=== PATIENT | female | born 1985 | race Caucasian/White ===

== ENCOUNTER 2021-02-27 15:22 | Emergency (ER) | payer MEDICAID ==
[~2021-02-27] VITALS: Ht 170.2 cm; Wt 61.4 kg
[2021-02-27] MEDS ORDERED: IV NORMAL SALINE 1,000ML 1,000 ML IV ONE (15:45)
--- NOTE | 2021-02-27 15:54 | PHYS DOC ---
General Adult EDM: Chief Complaint: CONGESTION HPI: HPI: Patient is a 35-year-old female who presents to the emergency department for 4- day history of nasal congestion and drainage, shortness of breath, nausea and chest wall tightness with deep inspiration. Patient reports that her children were sick with similar complaints and was told that they had a sinus infection. Patient denies any vomiting, chest pain, fevers. She is tachycardic in the emergency department with a heart rate of 1 33-1 35, 97% on room air. History of cervical cancer with a full hysterectomy. (CYNTHIA WHEELER APRN) Review of Systems: Review of Systems: Constitutional: negative unless reported in HPI Eyes: negative unless reported in HPI HENT: negative unless reported in HPI Respiratory: negative unless reported in HPI Cardiovascular: negative unless reported in HPI GI: negative unless reported in HPI : negative unless reported in HPI Musculoskeletal: negative unless reported in HPI Integument: negative unless reported in HPI Neurologic: negative unless reported in HPI Endocrine: negative unless reported in HPI Lymphatic: negative unless reported in HPI Psychiatric: negative unless reported in HPI (CYNTHIA WHEELER APRN) Current Medications: Current Meds: Current Medications Medications (Trade) Dose Ordered Sig/Aquilino Start Time Stop Time Status Last Admin Dose Admin Sodium Chloride 1,000 ml @ 1,000 mls/hr 1X ONCE 02/27/21 15:45 02/27/21 16:44 (CYNTHIA WHEELER APRN) Allergies: Allergies: Allergies Coded Allergies Type Severity Reaction Last Updated Verified No Known Drug Allergies 02/27/21 No (CYNTHIA WHEELER APRN) Physical Exam: PE: Constitutional: Well developed, well nourished, no acute distress, non-toxic appearance. [] HENT: Normocephalic, atraumatic, bilateral external ears normal, oropharynx moist, no oral exudates, nose normal. [] Eyes: PERRL, EOMI, conjunctiva normal, no discharge. [] Neck: Normal range of motion, no tenderness, supple, no stridor. [] Cardiovascular:Heart rate tachycardic rhythm, no murmur [] Lungs & Thorax: Bilateral breath sounds clear to auscultation [] Abdomen: Bowel sounds normal, soft, no tenderness, no masses, no pulsatile masses. [] Skin: Warm, dry, no erythema, no rash. [] Back: Normal range of motion Extremities: No tenderness, no cyanosis, no clubbing, ROM intact, no edema. [] Neurologic: Alert and oriented X 3, normal motor function, normal sensory function, no focal deficits noted. [] Psychologic: Affect normal, judgement normal, mood normal. [] (CYNTHIA WHEELER APRN) Current Patient Data: Labs: Laboratory Tests Test 02/27/21 15:50 02/27/21 16:52 White Blood Count 4.4 x10^3/uL Red Blood Count 4.86 x10^6/uL Hemoglobin 15.0 g/dL Hematocrit 44.4 % Mean Corpuscular Volume 91 fL Mean Corpuscular Hemoglobin 31 pg Mean Corpuscular Hemoglobin Concent 34 g/dL Red Cell Distribution Width 13.4 % Platelet Count 172 x10^3/uL Neutrophils (%) (Auto) 43 % Lymphocytes (%) (Auto) 43 % Monocytes (%) (Auto) 10 % Eosinophils (%) (Auto) 3 % Basophils (%) (Auto) 1 % Neutrophils # (Auto) 1.9 x10^3uL Lymphocytes # (Auto) 1.9 x10^3/uL Monocytes # (Auto) 0.5 x10^3/uL Eosinophils # (Auto) 0.1 x10^3/uL Basophils # (Auto) 0.0 x10^3/uL Urine Collection Type Clean catch Urine Color Yellow Urine Clarity Clear Urine pH 8.5 Urine Specific [place] 1.020 Urine Protein Neg Urine Glucose (UA) Neg mg/dL Urine Ketones (Stick) Neg mg/dL Urine Blood Neg Urine Nitrite Neg Urine Bilirubin Neg Urine Urobilinogen Dipstick 0.2 mg/dL Urine Leukocyte Esterase Neg Urine RBC 0 /HPF Urine WBC 0 /HPF Urine Squamous Epithelial Cells Few /LPF Urine Amorphous Sediment Present /HPF Urine Bacteria 0 /HPF Sodium Level 140 mmol/L Potassium Level 3.9 mmol/L Chloride Level 101 mmol/L Carbon Dioxide Level 29 mmol/L Anion Gap 10 Blood Urea Nitrogen 11 mg/dL Creatinine 0.8 mg/dL Estimated GFR (Cockcroft-Gault) 81.6 BUN/Creatinine Ratio 14 Glucose Level 107 mg/dL Calcium Level 8.4 mg/dL Total Bilirubin 0.2 mg/dL Aspartate Amino Transf (AST/SGOT) 16 U/L Alanine Aminotransferase (ALT/SGPT) 23 U/L Alkaline Phosphatase 44 U/L Troponin I High Sensitivity < 4 ng/L Total Protein 7.2 g/dL Albumin 4.0 g/dL Albumin/Globulin Ratio 1.3 Influenza Type A (Rapid) Negative Influenza Type B (Rapid) Negative SARS-CoV-2 Antigen (Rapid) Positive Current Medications Medications (Trade) Dose Ordered Sig/Aquilino Route PRN Reason Start Time Stop Time Status Last Admin Dose Admin Sodium Chloride 1,000 ml @ 1,000 mls/hr 1X ONCE IV 02/27/21 15:45 02/27/21 16:44 DC 02/27/21 16:52 Iohexol (Omnipaque 350 Mg/ml) 100 ml 1X ONCE IV 02/27/21 16:00 02/27/21 16:06 DC 02/27/21 16:07 (CYNTHIA WHEELER APRN) EKG: EKG: [] (CYNTHIA WHEELER APRN) Radiology/Procedures: Radiology/Procedures: []PROCEDURE: CT ANGIOGRAPHY CHEST CTA CHEST INDICATION: tachycardia, chest tightness, soa Comparison: None. TECHNIQUE: Following the uneventful administration of intravenous contrast, 83 cc Isovue-370, axial CT sections were obtained through the lungs and upper abdomen. Multiplanar reconstructions and MIP images were obtained. PQRS compliance statement: One or more of the following individualized dose reduction techniques were utilized for this examination: 1. Automated exposure control 2. Adjustment of the mA and/or kV according to patient size 3. Use of iterative reconstruction technique FINDINGS: Pulmonary arteries: No evidence of pulmonary thromboembolic disease Lungs and Airways: No pulmonary mass or consolidation. No abnormality of the central airways. Pleura: The pleural spaces are normal. Heart and Mediastinum: The visualized thyroid is normal in size and attenuation. No axillary or supraclavicular lymphadenopathy. No mediastinal, hilar or retrocrural lymphadenopathy. The heart and pericardium are within normal limits. The great vessels of the thorax are normal. Stable thymic tissue. Abdomen: Limited images through the upper abdomen show no abnormality of the visualized organs. Bones and Soft Tissues: The visualized bones and chest wall soft tissues are within normal limits. IMPRESSION: 1. No evidence of pulmonary thromboembolic disease. 2. No pulmonary mass or consolidation. Electronically signed by: Gordon Walton MD (02/27/2021 4:22 PM) [id number] DICTATED AND SIGNED BY: GORDON WALTON MD DATE: 02/27/21 1618 CC: CYNTHIA WHEELER APRN; DENISSE STONE MD ~MTH0 0 (CYNTHIA WHEELER APRN) Heart Score: C/O Chest Pain: No Risk Factors: Risk Factors: DM, Current or recent (<one month) smoker, HTN, HLP, family history of CAD, obesity. Risk Scores: Score 0 - 3: 2.5% MACE over next 6 weeks - Discharge Home Score 4 - 6: 20.3% MACE over next 6 weeks - Admit for Clinical Observation Score 7 - 10: 72.7% MACE over next 6 weeks - Early Invasive Strategies (CYNTHIA WHEELER APRN) Course & Med Decision Making: Course & Med Decision Making Pertinent Labs and Imaging studies reviewed. (See chart for details) [] Patient presents to the emergency department today for congestion, nasal drainage, shortness of breath, nausea, chest wall tightness with deep inspiration. Patient was noted to be tachycardic in the emergency department with a heart rate of 1 33-1 35, she is not hypoxic. Work-up in the ER consisted of blood work, EKG, urinalysis, COVID/influenza testing. Due to patient's complaint of shortness of breath, chest wall tightness and tachycardia, CT was performed to rule out a pulmonary embolism. Patient's tachycardia was treated with IV fluids. Patient blood work was unremarkable. Urinalysis showed no acute findings. CT did not show any acute findings. Patient's heart rate has improved after IV fluids. Patient is COVID-positive.Discharged with inhaler. Patient educated on symptomatic treatment. Advised to purchase a pulse oxime ter. I discussed with patient all findings and diagnostic testing as well as the need to follow-up with PCP for further evaluation and treatment or return to the ER if any new or worsening symptoms. Strict return precautions were also discussed at length. Patient voiced understanding and agreement with the plan. Patient is hemodynamically stable at the time of disposition. (CYNTHIA WHEELER APRN) Course & Med Decision Making I was the Attending physician on the above date of service of this patient. This patient was evaluated, examined, treated, and dispositioned from the emergency department by the mid-level practitioner. Although I was working at the time , no assistance was requested. Electronically signed, Mainor Kaye DO (MAINOR KAYE DO) Kia Disclaimer: Kia Disclaimer: This electronic medical record was generated, in whole or in part, using a voice recognition dictation system. (CYNTHIA WHEELER APRN) Departure Departure: Impression: Primary Impression: COVID-19 Disposition: 01 HOME / SELF CARE / HOMELESS Condition: GOOD Referrals: DENISSE STONE MD (PCP) Patient Instructions: Shortness of Breath Additional Instructions: You are seen in the emergency department today for congestion, chest tightness, shortness of breath, nausea. Your blood work and urinalysis was unremarkable. The CT scan of your chest did not show any pulmonary embolism or other acute findings. You were positive for COVID-19. Please take Tylenol and ibuprofen for any pain or fevers. Increase your fluids and rest. For shortness of breath you can use the albuterol inhaler as needed. I would advise you to purchase a pulse oximeter and monitor your oxygen saturation and heart rate at home. Return to the emergency department if your oxygen saturation drops below 90%. Follow-up with your primary care provider tomorrow regarding your ER visit. Return to the emergency department if you develop shortness of breath, chest pain, high fevers refractory to treatment, intractable nausea or vomiting. You have been tested for or diagnosed with COVID-19. It is an infection caused by a new type of coronavirus. COVID-19 will cause cold-like or mild flu symptoms in most. It can cause more severe symptoms like problems breathing in some. There is no treatment for COVID-19. The body will clear the infection over time. Self-care will help to ease discomfort. Steps to Take: Self-Care Rest as needed. Healthy habits may help you feel better. Steps include: Choose healthy foods including fruits and vegetables. Drink water throughout the day. Get plenty of sleep each night. If you smoke, try to quit. It may ease breathing. Avoid alcohol. Keep Others Healthy The virus can spread to others. Droplets are released every time you sneeze or cough. The droplets can get into the mouth, nose, or eyes of people near you and lead to infection. To lower the chances of spreading COVID-19 to others: Stay at home until your doctor has said it is safe to leave. If you tested positive this will mean staying isolated until both of the following are true: At least 7 days have passed since the start of illness. You are free of fever for at least 72 hours without the use of medicine. During this time: - Avoid public areas, events, or transportation. Do not return to work or school until your doctor has said it is safe to do so. - Call ahead if you need to go to a medical center. Let them know you may have COVID-19. It will help them guide you where to go. They may also ask you to wear a facemask when you come to the office. - If you call for emergency medical services, let them know you may have COVID- 19. While at home: - Try to avoid close contact with others. Stay about 6 feet away. - If possible, spend most of your time in a separate room from others. - Use a face mask if you will be in close contact with others such as sharing a room or vehicle. - Have someone wipe down common surfaces in the home. Use household security solutions engineer every day on areas like doorknobs, counters, or sinks. - Cough or sneeze into a tissue. Throw the tissue away right after use. If a tissue is not available, cough or sneeze into your elbow. - Wash your hands often. Wash them after sneezing or coughing. Use soap and water and wash for at least 20 seconds. Alcohol based hand home restoration service cleaner can be used if soap and water is not available. - Do not prepare food for others. Avoid sharing personal items like forks, spoons, or toothbrushes. - Avoid close contact with pets while you are sick. There is no evidence of the virus passing to pets. This is a safety step until more is known about this virus. Isolation can be frustrating. Social interaction can help. Keep in touch with friends and family through phone and tech options. You can still interact with others in your home, just keep a safe distance of about 6 feet. Follow-up: Your doctors office will check in with you to see if there are any changes in your health. You may be asked to keep track of symptoms to share with them. They will also let you know when you are clear to be in public again. Problems to Look Out For: Contact your doctor if your recovery is not going as you expect. Get emergency care if you have problems such as: - Trouble breathing - Nonstop chest pain or pressure - Changes in awareness, confusion, or problems waking - Lips or face have bluish color - Worsening of symptoms If you think you have an emergency, call for emergency medical services right aw ay. As taken from [facility] Albuterol Sulfate (PROAIR HFA INHALER) 8.5 Gm Hfa.aer.ad 2 PUFF IH PRN Q4-6HRS PRN for wheezing for 21 Days, #1 INHALER 0 Refills as needed for wheezing Prov: CYNTHIA WHEELER APRN 02/27/21 CYNTHIA WHEELER APRN Feb 27, 2021 15:54 MAINOR KAYE DO Mar 02, 2021 07:14
[2021-02-27] MEDS ORDERED: IOHEXOL 350 MG/ML 100 ML VIAL. IV ONE (16:00)
--- NOTE | 2021-02-27 16:24 | RAD ---
CTA CHEST INDICATION: tachycardia, chest tightness, soa Comparison: None. TECHNIQUE: Following the uneventful administration of intravenous contrast, 83 cc Isovue-370, axial C T sections were obtained through the lungs and upper abdomen. Multiplanar reconstructions and MIP laila ges were obtained. PQRS compliance statement: One or more of the following individualized dose reduction techniques were utilized for this examinat ion: 1. Automated exposure control 2. Adjustment of the mA and/or kV according to patient size 3. Use of iterative reconstruction technique FINDINGS: Pulmonary arteries: No evidence of pulmonary thromboembolic disease Lungs and Airways: No pulmonary mass or consolidation. No abnormality of the central airways. Pleura: The pleural spaces are normal. Heart and Mediastinum: The visualized thyroid is normal in size and attenuation. No axillary or supra clavicular lymphadenopathy. No mediastinal, hilar or retrocrural lymphadenopathy. The heart and peric ardium are within normal limits. The great vessels of the thorax are normal. Stable thymic tissue. Abdomen: Limited images through the upper abdomen show no abnormality of the visualized organs. Bones and Soft Tissues: The visualized bones and chest wall soft tissues are within normal limits. IMPRESSION: 1. No evidence of pulmonary thromboembolic disease. 2. No pulmonary mass or consolidation. Electronically signed by: Reed Walton MD (02/27/2021 4:22 PM) [id number]
[2021-02-27 16:30] LABS: CALCIUM 8.4 mg/dL (8.5-10.1); CREATININE 0.8 mg/dL (0.6-1.0); GFR 81.6; POTASSIUM 3.9 mmol/L (3.5-5.1)
[2021-02-27 16:32] LABS: BASO % 1 % (0-3); EOS # 0.1 x10^3/uL (0.0-0.7); EOS % 3 % (0-3); HEMATOCRIT 44.4 % (36.0-47.0); LYMPH # 1.9 x10^3/uL (1.0-4.8); LYMPH % 43 % (24-48); MEAN CORPUSCULAR HEMOGLOBIN 31 pg (25-35); MEAN CORPUSCULAR HGB CONC 34 g/dL (31-37); MEAN CORPUSCULAR VOLUME 91 fL (79-100); MONO # 0.5 x10^3/uL (0.0-1.1); MONO % 10 % (0-9); NEUT # 1.9 x10^3uL (1.8-7.7); NEUT % 43 % (31-73); PLATELET COUNT 172 x10^3/uL (140-400); RED BLOOD COUNT 4.86 x10^6/uL (3.50-5.40); RED CELL DISTRIBUTION WIDTH 13.4 % (11.5-14.5); WHITE BLOOD COUNT 4.4 x10^3/uL (4.0-11.0)
[2021-02-27 16:35] LABS: ALBUMIN/GLOBULIN RATIO 1.3 (1.0-1.7); TOTAL BILIRUBIN 0.2 mg/dL (0.2-1.0); TOTAL PROTEIN 7.2 g/dL (6.4-8.2)
[2021-02-27 16:58] LABS: AMORPHOUS SEDIMENT,UR PRESENT /HPF; BACTERIA,URINE 0 /HPF (0-FEW); BILIRUBIN,URINE NEG (NEG); CLARITY,URINE CLEAR; COLOR,URINE YELLOW; GLUCOSE,URINE NEG (NEG); NITRITE,URINE NEG (NEG); RBC,URINE 0 /HPF (0-2); SQUAMOUS EPITHELIAL CELL,UR FEW /LPF; UROBILINOGEN,URINE 0.2 mg/dL (0.2 mg/dL); WBC,URINE 0 /HPF (0-4)
[2021-02-27 17:40] LABS: INFLUENZA A PATIENT NEGATIVE (NEGATIVE); INFLUENZA B PATIENT NEGATIVE (NEGATIVE)
[2021-02-27] MEDS ORDERED: ALBU2.5V8 IH (17:47)
[2021-02-27 18:00] VITALS: BP 114/71
--- NOTE | 2021-02-27 22:56 | EKG ---
[address] [address] Test Date: 2021-02-27 Test Time: 16:23:30 Pat Name: WAI CHATMAN Department: Room: Gender: F Flow Manager: MARILEE : 1985 Requested By: CYNTHIA WHEELER Order Number: [id number] Reading MD: Aidan Gordon MD Measurements Intervals [place] Rate: 117 P: 77 CA: 152 QRS: 152 QRSD: 72 T: 71 QT: 362 QTc: 510 Interpretive Statements SINUS TACHYCARDIA Electronically Signed On 03-06-2021 15:42:45 [employer]RIER by Aidan Gordon MD
== END 2021-02-27 17:57 | disposition home or self-care (01) ==
LOC: ER 15:22
DX: U07.1 COVID-19 (principal)
CPT/HCPCS: 36415; 71275; 80053; 81001; 84484; 85025; 87426; 87804; 93005; 96360; 99285; J7030; Q9967